=== PATIENT | female | born 1995 | race African-American/Black ===

== ENCOUNTER → 2017-04-11 | Emergency (ER) | payer OTHER ==
[~2017-04-11] VITALS: Ht 144.8 cm; Wt 49.4 kg
[~2017-04-11] MED LIST: ERYC250 MG PO; FLAGYL500 M1 PO; NOHOMEMEDICATIONS; OMNICEF250 MG/5 M PO; TOBREX5 ML OPHTHALMIC
[2017-04-11 11:46] LABS: URINE BILIRUBIN NEGATIVE (Negative); URINE BLOOD NEGATIVE (Negative); URINE COLOR YELLOW; URINE GLUCOSE-RANDOM* NEGATIVE (Negative); URINE KETONES NEGATIVE (Negative); URINE NITRITE NEGATIVE (Negative); URINE PROTEIN (DIPSTICK) NEGATIVE (Negative); URINE SPECIFIC GRAVITY 1.015 (1.003-1.035); URINE UROBILINOGEN 0.2 E.U./dl (0.2-1.0)
[2017-04-11 13:01] VITALS: BP 104/72
== END ==
LOC: ER 11:17
PROVIDERS: Emergency Medicine
DX: N76.0 Acute vaginitis (principal); B96.89 Other specified bacterial agents as the cause of diseases classified elsewhere; H00.015 Hordeolum externum left lower eyelid; F17.210 Nicotine dependence, cigarettes, uncomplicated

== ENCOUNTER 2019-05-13 13:47 | Emergency (ER) | payer OTHER ==
[~2019-05-13] VITALS: Ht 144.8 cm; Wt 44.5 kg
[2019-05-13] MEDS ORDERED: NORFLEX100 MG PO (15:14)
[2019-05-13] MEDS ORDERED: NAPROSYN500 MG PO (15:14)
[2019-05-13 15:30] VITALS: BP 100/64
== END 2019-05-13 15:32 | disposition home or self-care (01) ==
LOC: ER 13:47
DX: S39.012A Strain of muscle, fascia and tendon of lower back, initial encounter (principal); M79.601 Pain in right arm; F17.210 Nicotine dependence, cigarettes, uncomplicated; V89.2XXA Person injured in unspecified motor-vehicle accident, traffic, initial encounter; Y93.89 Activity, other specified; Y92.89 Other specified places as the place of occurrence of the external cause; Y99.8 Other external cause status